=== PATIENT | male | born 1990 | race Caucasian/White ===

== ENCOUNTER 2022-10-02 14:18 | Outpatient (CLI) | payer MEDICAID, SELFPAY ==
[2022-10-05 14:13] LABS: Varicella-Zoster Virus Ab, IgG 759.1 IV
[2022-10-05 14:14] LABS: Measles, Rubeola, Antibody IgG 79.8 AU/mL
[2022-10-05 14:18] LABS: Rubella Antibody IgG 10.9 IU/mL
== END 2022-10-02 14:19 | disposition home or self-care (01) ==
LOC: NFLDREF 15:54
PROVIDERS: PCP Family Medicine; Visit Provider Family Medicine
DX: Z78.9 Other specified health status (principal)
CPT/HCPCS: 86735; 86762; 86765; 86787

== ENCOUNTER 2023-08-10 12:58 | Emergency (ER) | payer MEDICAID, SELFPAY ==
[2023-08-10 13:09] VITALS: BP 132/86; PULSE 104; RESP 16; TEMP 36.6; O2SAT 100; BMI 27.6
--- NOTE | 2023-08-10 13:45 | CRLHL7_ITS ---
For Patients: As a result of the Century Cures Act, medical imaging exams and procedure reports are released immediately into your electronic medical record. You may view this report before your referring provider. If you have questions, please contact your health care provider. Indication: Pain at the base of the 2nd and 3rd toe. Technique: Three views of the right foot. Comparison: None available. Findings: Alignment is anatomic and joint spaces are maintained. No acute fracture. Well corticated ossicle along the anterior aspect of the tibial plafond appears chronic. Bone density is normal. Soft tissues are unremarkable. Impression: No acute osseous abnormality. Dictated by Farhana Atkinson MD @ 08/10/2023 3:07:36 PM (Electronically Signed)
[2023-08-10] MEDS: KETOROLAC 30 MG/ML inj IM (13:53)
--- NOTE | 2023-08-10 14:01 | ED_ITS ---
HPI - General Adult General Date Seen: 08/10/23 Chief complaint: Lower Extremity Swelling Stated complaint: R foot pain Time Seen by Provider: 08/10/23 13:00 Source: patient Mode of arrival: ambulatory Limitations: no limitations History of Present Illness HPI narrative: Patient is a 33-year-old male with no pertinent medical problems presented emergency department for right foot pain. Pain is at the base of the 2nd and 3rd toes. States the symptoms started this morning. He has had similar symptoms in the past he states with pain to his great toe on left foot. Was told before he might have gout but his uric acid levels were too low so cannot be officially diagnosed. States this feels similar. States he drinks a moderate amount of beer and needs a moderate amount of red meat. He does states he was playing soccer he was then rolled his same ankle but is having no pain in the midfoot or the right ankle. Denies fevers, chills, weakness, numbness. Related Data Home Medications Medication Instructions Recorded Confirmed lisdexamfetamine 40 mg capsule 40 mg PO QAM 08/10/23 08/10/23 (Vyvanse) vilazodone 20 mg tablet 20 mg PO DAILY 08/10/23 08/10/23 Allergies Allergy/AdvReac Type Severity Reaction Status Date / Time No Known Allergies Allergy Unknown Verified 08/10/23 13:13 Review of Systems Narrative: Negative unless stated in HPI PFSH PFSH Surgical History History of hernia repair ?Z98.890 - Other specified postprocedural states (ICD-10) ?Z87.19 - Personal history of other diseases of the digestive system (ICD-10) Social History Smoking Status: Never smoker Do you use any of these nicotine containing products: None Second hand tobacco smoke exposure: No How often do you have a drink containing alcohol: monthly or less How many standard drinks containing alcohol do you have on a typical day: 1 or 2 How often do you have six or more drinks on one occasion: Never AUDIT-C Alcohol total score: 1 Non-prescribed substance use: denies use Caffeine: Yes service: No Exam Narrative: Exam Narrative: Const: Well-nourished, Well-developed, in mild distress Eyes: PERRL, no conjunctival injection, and symmetrical lids HENT: Atraumatic external nose and ears. Moist mucous membranes. MSK:Extremities w/o deformity, Normal Active ROM. Mild tenderness noted at the bases of the 2nd and 3rd toes Skin: Warm, Dry. No rashes or lesions. Neuro: Normal Muscle tone, No focal neurological deficits. Psych: Awake, Alert, & Oriented x3. Appropriate mood and affect. Const: Vital Signs, click to edit/add: Vital Signs - 24 hr 08/10/23 13:09 08/10/23 15:37 Temperature 97.9 F 97.9 F Pulse Rate [Pulse Oximeter] 104 H 104 H Respiratory Rate 16 16 Blood Pressure [Ri ght Upper Arm] 132/86 132/86 Pulse Oximetry 100 Oxygen Delivery Me thod Room Air Course Vital Signs Vital signs: Initial Vital Signs Temperature 97.9 F 08/10/23 13:09 Temperature Source Temporal Artery Scan 08/10/23 13:09 Pulse Rate 104 H 08/10/23 13:09 Pulse Rhythm Regular 08/10/23 13:09 Pulse Strength 3+ Normal 08/10/23 13:09 Respiratory Rate 16 08/10/23 13:09 Blood Pressure 132/86 08/10/23 13:09 Blood Pressure Mean 101 08/10/23 13:09 Blood Pressure Position Sitting 08/10/23 13:09 Pulse Oximetry 100 08/10/23 13:09 Oxygen Delivery Method Room Air 08/10/23 13:09 Vital Signs Temperature 97.9 F 08/10/23 13:09 Pulse Rate 104 H 08/10/23 13:09 Respiratory Rate 16 08/10/23 13:09 Blood Pressure 132/86 08/10/23 13:09 Pulse Oximetry 100 08/10/23 13:09 Oxygen Delivery Method Room Air 08/10/23 13:09 Temperature 97.9 F 08/10/23 15:37 Pulse Rate 104 H 08/10/23 15:37 Respiratory Rate 16 08/10/23 15:37 Blood Pressure 132/86 08/10/23 15:37 Pulse Oximetry 100 08/10/23 13:09 Oxygen Delivery Method Room Air 08/10/23 13:09 Medical Decision Making MDM Narrative Medical decision making narrative: Patient is a 33-year-old male presents emergency department for foot pain. States symptoms started this morning. Had similar pain in his great toe in the past. Has been told it could be gout has never been formally tested with arthrocentesis. Will do an x-ray to make sure there was no other injury since huma mao did say hurt his ankle and foot yesterday at soccer. Toradol was given for pain she says helped his symptoms. X-ray showed no acute abnormalities. He does state that compression makes his symptoms worse which is also consistent with gout. Informed him to use NSAIDs and we given the situation to set up primary care. he is agreeable to this plan. Imaging Data X-ray foot: Radiologist's impression: Indication: Pain at the base of the 2nd and 3rd toe. Technique: Three views of the right foot. Comparison: None available. Findings: Alignment is anatomic and joint spaces are maintained. No acute fracture. Well corticated ossicle along the anterior aspect of the tibial plafond appears chronic. Bone density is normal. Soft tissues are unremarkable. Impression: No acute osseous abnormality. Dictated by Farhana Atkinson MD @ 08/10/2023 3:07:36 PM Discharge Plan Discharge Clinical Impression: Foot pain, right Patient Disposition: Home, Self-Care Condition: Stable Instructions: Gout (ED), Arthralgia (ED) Additional Instructions: His symptoms might be related to gout. I recommend following up with the primary care provider. Take ibuprofen for pain. Return for new worsening sym ptoms Prescriptions: No Action vilazodone 20 mg tablet 20 mg PO DAILY lisdexamfetamine [Vyvanse] 40 mg capsule 40 mg PO QAM Follow Up/Referrals: Ananda Diaz MD [Primary Care Provider] - Stand Alone [facility] Inst[facility]
[2023-08-10 15:37] VITALS: BP 132/86; PULSE 104; RESP 16; TEMP 36.6
== END 2023-08-10 15:37 | disposition home or self-care (01) ==
PROVIDERS: Emergency Provider Student in an Organized Health Care Education/Training Program; PCP Family Medicine
DX: M79.671 Pain in right foot (principal)
CPT/HCPCS: 73630; 96372; 99282; 99284; J1885

== ENCOUNTER 2024-01-13 08:45 | Outpatient (RCR) | payer MEDICAID, SELFPAY ==
--- NOTE | 2023-12-09 14:58 | PT.OPEX ---
PT [place] Outpatient Eval PT [facility] Outpatient Eval Start: 12/09/23 10:37 Freq: Status: Active Protocol: Document 12/09/23 10:37 NGAV (Rec: 12/09/23 14:57 KLV [id number]) E-signed By Marisa Quinteros PT Physical Therapy Outpatient Evaluation Insurance Information Recert Due Date 03/04/24 Insurance Name Medicaid Medical Diagnosis Closed right ankle fracture Treating Diagnosis Right ankle pain, limited ankle ROM, antalgic gait, gross LE weakness Referring Phillip Vázquez Subjective Subjective Miguel (Dayne) reports DOI: 09/27/23 when he was playing soccer and ended up twisting his ankle. Was seen at urgent care indicating fibular fracture, was place d in CAM boot, crutches and NWB. Was seen by orthopedics 10/06/23 where he was placed in a short leg cast and TTWB for 3 weeks . Following this time he was placed in CAM walker boot and advised to slowly progress WB. Last seen by Dr. Hamilton on 11/17/23 with repeat x-rays indicating stable fracture however no significant callus formation. He was placed in a trilock ankle brace and continued to advise gradual return to activities with pain being his guide. Will follow up with Dr. Hamilton in 6-8 weeks following that visit. Generally he has been able to go without his trilock brace with walking with minimal to no pain. Mostly having difficulty at this point with descending stairs however has not pushed his motion prior to clearance from PT. 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 Goals are to be able to walk normally and return to playing soccer. Pain Comments -12/05 Date of Last Physician Visit 11/18/23 Precautions Weight Bearing Status Weight Bear as Tolerated Therapy Limitations/Systems Review Not Limited Objective Other/Pertinent Objective Ankle ROM (R/L): -DF (knee straight): 04/06 -DF (knee bent): 6 from wall down to 4 from wall/0 -PF: -Inv: -Kat: Figure 8 swelling: -R 59 cm -L 57.5 cm SL balance: -L WNL -R able to hold 30 seconds however more challenging Formal MMT held today until ROM returns Functional Test Performed & Score LEFS: 48/80 Assessment Assessment/Impression Patient is a 33 year old male presenting to physical therapy for evaluation and treatment s/p right lateral malleolus Ferrer B fracture. Patient presents with expected limitations in pain, swelling, ROM. These impairments are limiting the patients ability to descend stairs, walk extended periods, return to higher level workouts/playing soccer. Patient appears motivated to participate in PT and presents with good prognosis to improve mobility, strength, proprioception and return to functional activities with skilled physical therapy intervention. Primary Functional Limitations descend stairs, walk extended periods, return to higher level workouts/playing soccer Plan of Care Rehabilitation Potential Good Physical Therapy Goals In 6 weeks (01/20/24) Pt will demonstrate WNL and pain free ankle ROM Pt will demonstrate 5/5 ankle strength in order to progress to running Pt will demonstrate ability to perform 10 SL heel raise without pain in order to progress to more functional strengthening In 10 weeks (02/17/24) Pt will tolerate gradual return to running program Pt will exhibit Limb Symmetry Index (LSI) of no less than 90 % with hop testing to indicate appropriateness for continued progression for return to activity/sport. Pt will exhibit 9 pt improvement in LEFS Outcome measure to demonstrate functional improvement and progress towards goals. Treatment Plan/Direct Interventions Gait Training,Ice/Cold/ Vasopneumatic,Joint Mobilization,Manual Therapy, Neuromuscular Re-ed,Self-Care/ Home Management,Therapeutic Activities,Therapeutic Exercises Frequency/Duration 1x/wk for 4-6 weeks with 4-6 sessions prn based on progress Patient Will Be Discharged From Therapy Completion of LTG(s), Independent w/HEP, Independently Progressing Evaluation Billing Untimed Code Treatment Minutes 20 Complexity Low Certification Information Physician Comment/Change : Physician NPI Number #
== END 2024-05-12 23:59 | disposition home or self-care (01) ==
PROVIDERS: PCP Family Medicine; Visit Provider Physician Assistant Surgical
DX: S82.891A Other fracture of right lower leg, initial encounter for closed fracture (principal); Z51.89 Encounter for other specified aftercare
CPT/HCPCS: 97110; 97140; 97161